=== PATIENT | male | born 1955 | race Caucasian/White ===

== ENCOUNTER 2023-11-06 16:22 | Inpatient (IN) | payer MEDICARE, OTHER, SELFPAY ==
[2023-11-06] VITALS (14 sets, daily range): BP systolic 105–177; BP diastolic 54–127; BMI 32.5
--- NOTE | 2023-11-06 11:27 | W.PN.CARDCBS ---
Today's Communication / Plan
-
LHC today, serial troponin to peak
Afib rate control, increase metoprolol 25 bid, resume Xarelto when able
HTN urgency, resume meds post cath, trend
Impression / Plan
-
This is a summary, please see scanned H&P
PCP: Fran Britton MD
Primary waterproofing mixer: Ty Obregon MD
68 yo WM h/o persistent Afib prior ablations x3 (2000 [facility], [address] Curtis), HTN, STALIN/CPAP, Hyperlipidemia who presented to on 11/05/23 with b/l shoulder pain and chest pain which started on Thursday afternoon which progressed
radiating to his jaw. On arrival to ER he was found to be in Afib with RVR and HTN urgency bp 200/140. His rates and BP were controlled with medication. His K+ was 2.9 and repleted, EKG showed mild ST changes and Troponin trended up 12-14-160. He is
being transferred today for [facility].
11/06/23 ECHO - LVEF 53%, no WMA, mild dil RA, mild-mod MR, mild AR
Impression:
Chest pain/NSTEMI
Hypertensive urgency
Persistent AFib with RVR on admission
Afib ablation 2000 at [facility], Dr. Rahman
07/16/10 and 03/16/[address] Curtis
Hypokalemia
HLD
STALIN/CPAP
Asthma
Diverticulosis
Plan:
Chest pain/NSTEMI - Admit IVU post cath, PCI RCA
serial troponin to peak
Brilinta switch to Plavix load in am
triples for 1 week - ASA, Plavix and Xarelto (dose lowered to 15mg while on Plavix), then stop Aspirin
Continue metoprolol, losartan
check CVE in am, stop simvastatin switch to atorvastatin 40mg
Cardiac rehab c/s
f/u Dr. Obregon 2-4 weeks
Afib with RVR - resume Xarelto post cath, continue diltiazem, increase metoprolol 25mg bid
trend electrolytes with hypokalemia, monitor on tele
c/s EP if necessary, last saw Dr. España in 2018
maintain CPAP, wt loss encouraged
HTN urgency - monitor trends post PCI, will increase metoprolol to 25mg bid
continue losartan, diltiazem
continue to monitor closely
Progress Note - Nursing Home Manager
Subjective
Date of Service: November 06, 2023
no cp, sob on arrival
Physical Exam
Physical Exam
NAD< AOX3
S1, S2, irreg irreg, no murmur
CTAB, non labored
SNTND bsx4
No LE edema
[2023-11-06] MEDS: NSS 308 ML IV (13:31)
--- NOTE | 2023-11-06 14:03 | PTCARENOTE ---
Pt C/O left side mix axillary pain. 1 spray of SL NTG given per Wendy PRICE CLERK
[2023-11-06 16:15] LABS: ACT-LR - POC 248 Seconds (116-155)
--- NOTE | 2023-11-06 16:43 | CM ---
spoke to pt in room, he is prev indep, lives with his and 2 granddaughter ( ) in a 2 story townhouse. he denies any dc planning needs or dme's. plan is for dc to home when medically stable.
--- NOTE | 2023-11-06 16:44 | CM ---
priced nati at [facility] [place], operated by [facility], his cost will be $ 425/3-months, he is agreeable to this cost.
--- NOTE | 2023-11-06 17:05 | ITS.CL.CATH ---
Capital Equipment Specialist - Catheterization
Cardiac Catheterization
Procedure Report:
LEFT HEART CATH AND CORONARY INTERVENTION
Date of Procedure: November 06, 2023
Referring: Dr. Ty Obregon
PROCEDURES:
1. Left heart catheterization with coronary and single-plane left ventriculography
2. Stenting of the distal right coronary artery to the proximal PDA with a 3.0 x 22 mm [place] stent. Plaque shift resulted in occlusion of a large posterolateral branch which underwent successful wiring, balloon and stenting at its ostium with
placement of a 3.0 x 8 mm David stent at the ostium of the PLB
INDICATION: This is a 68-year-old gentleman with a past medical history notable for permanent atrial fibrillation, hypertension, hyperlipidemia, and obesity. He was admitted to [facility] following the development of chest and bilateral
shoulder discomfort with radiation into the jaw. He became chest pain-free and is now referred to [facility] for coronary angiography. His troponin on arrival measured 0.2 ng/mL and he reported ongoing low-grade substernal chest tightness.
ACCESS: Right radial artery, 6 [place] sheath
HEMODYNAMICS (mmHg):
AO (s/d, m) : 174/108
LV (s/d) : 175/13
LVEDP : 23
CORONARY FINDINGS
Dominance: Right
LEFT MAIN: Short and unobstructed
LEFT ANTERIOR DESCENDING: The LAD is a small caliber vessel arising normally from the left main and running in the anterior interventricular groove. The LAD approaches but does not wraparound the apex.
CIRCUMFLEX: The circumflex is a medium caliber nondominant vessel. There are tandem 50% proximal stenosis. OM1 is small. The circumflex terminates in a moderate caliber OM 2. Minor irregularities are noted
RIGHT CORONARY: The right coronary artery is a large-caliber dominant vessel with a 50% stenosis in its midportion. Diffuse luminal irregularities are present throughout the right coronary artery. The crux of the right coronary artery has an 80%
stenosis with hazy subtotal occlusion/95% stenosis in the proximal PDA. The PDA is large and has a 40% mid stenosis and competitive flow is noted to the distal PDA from left to right collaterals. The posterolateral branch is large and I under
appreciated the angiographic severity of the stenosis at the origin of the PLB. The posterolateral branch is large and on review of the angiograms there is a 70-80% ostial stenosis. The PLB is a large caliber vessel with minor irregularities in
the mid to distal portion of the vessel.
VENTRICULOGRAPHY: Left ventriculography was performed in an STRAUSS projection. The digital single-plane left ventricular ejection fraction is estimated at 55-60% with inferoapical hypokinesis
ANGIOPLASTY PROCEDURE DETAIL: Upon review of the diagnostic catheterization films the decision was made to proceed with percutaneous revascularization of the culprit stenosis in the distal RCA extending to the origin of the PDA. The patient
received a 180 mg loading dose of ticagrelor at the beginning of the interventional procedure. Intravenous heparin was administered and the ACT was monitored during the procedure and maintained within therapeutic limits. The origin of the right
coronary artery was cannulated with a 6 [place] AL-1 guide catheter. A short BMW guidewire was advanced across the stenosis in the distal RCA and at the origin of the PDA and into the distal PDA. A Power Turn Flex guidewire was advanced to the
large posterolateral branch and into the distal vessel. Primary stenting was performed using a 3.0 x 22 mm David stent from the distal RCA to the proximal PDA the stent was implanted at nominal pressures with immediate plaque shift and occlusion of
the posterolateral branch. The patient experienced chest discomfort and ECG changes. A long BMW guidewire was then advanced across the stent and into the posterolateral branch where it was gently manipulated into the distal vessel. Antegrade flow
was reestablished in the posterolateral branch using a 2.25 mm Trek balloon. A 3.0 x 8 mm [place] stent was then advanced to the proximal posterolateral branch. The 3.0 x 8 mm [place] stent was deployed at the ostium of the posterolateral branch at 12
chela while a 3.0 x 12 mm noncompliant balloon was inflated to low pressure as the posterolateral stent was pulled to the ostium of the vessel. Final kissing balloon angioplasty was performed using a 3.0 x 8 mm noncompliant balloon at the origin of
the posterolateral branch and a 3.0 x 12 mm noncompliant balloon in the distal RCA to proximal PDA. Both balloons were inflated to 12 chela.
RADIATION SUMMARY: Fluoro Time (min): 16.5, Dose (mGy): 1849, DAP (Gy.cm2) : 103
CONCLUSIONS
1. Complex stenting of the distal RCA to the proximal PDA with a 3.0 x 22 mm [place] stent with subsequent plaque shift and loss of large posterolateral branch. The posterolateral branch was rescued with initial 2.25 mm balloon dilation and
subsequent stenting of the ostium of the posterolateral branch with a 3.0 x 8 mm [place] stent. Both stented segments were postdilated to high pressures with a final kissing balloon angioplasty.
2. Preserved left ventricular systolic function
RECOMMENDATIONS
1. Will change Xarelto to Eliquis
2. Triple therapy with Eliquis, clopidogrel, and aspirin for 1 week followed by Eliquis and clopidogrel
3. Aggressive risk modification with high intensity statin therapy. Continue medications for heart rate control given permanent atrial fibrillation
4. GI prophylaxis
Copy to: Dr. Ty Obregon, Dr. Fran Tate
[2023-11-06] MEDS: NSS 1000 IV (18:08)
[2023-11-06] MEDS: LIPITOR 40 MG PO (18:20)
[2023-11-06] MEDS: TOPROL XL 25 MG PO (20:43)
[2023-11-06] MEDS: CARDIZEM SR 120 MG PO (20:44)
[2023-11-06 20:45] LABS: Glucose - Point of Care 145 mg/dl (70-99)
[2023-11-06 21:01] LABS: Troponin I 0.645 ng/ml
[2023-11-06] MEDS: ELIQUIS 5 MG PO (22:16)
--- NOTE | 2023-11-07 00:54 | PTCARENOTE ---
Received patient at change of shift this PM. AAOx3. VSS. He is A-Fib on the monitor. HR in the 80s-110s. INT patent. Nitroglycerin turned off at approximately 1930, per order. BPs controlled at this time. Right radial band removed at approximately
2129. Education was provided to the patient not to use this wrist and/or apply pressure when changing positions. Dressing is clean, dry, and intact. No bleeding. No hematoma. Patient reported feeling a little 'woozy', but denies lightheadedness,
dizziness, and nausea. 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 Plan of care discussed. He is receptive to teaching
and motivated. We discussed his medications and this RN answered any and all questions regarding his Eliquis. He denies pain and appears comfortable in bed at this time. Will continue to monitor.
[2023-11-07 02:30] VITALS: BP 136/81
[2023-11-07 02:37] VITALS: BMI 32.1
[2023-11-07 04:37] LABS: Hematocrit 46.1 % (39.0-52.0); Hemoglobin 16.5 g/dL (13.0-18.0); Mean Corp Hgb Conc. 35.8 g/dL (33.0-37.0); Mean Corpuscular Hgb 28.8 pg (27.0-31.0); Mean Corpuscular Volume 80.6 fL (80.0-94.0); Mean Platelet Volume 11.5 fL (7.4-10.4); Platelet Count 199 10^3/uL (130-400); Red Blood Cell Count 5.72 10^6/uL (4.70-6.10); Red Cell Dist. Width 12.9 % (11.5-14.5); White Blood Cell Count 13.6 10^3/uL (4.8-10.8)
[2023-11-07 05:00] LABS: Blood Urea Nitrogen 10 mg/dl (9-20); Calcium 9.1 mg/dl (8.4-10.2); Carbon Dioxide 23 mmol/L (22-30); Chloride 103 mmol/L (98-107); Estimated Creatinine Clearance > 125 ml/min; Glucose 142 mg/dl (70-99); HDL Cholesterol 35 mg/dl; LDL Cholesterol, Calculated 72 mg/dl; Potassium 3.1 mmol/L (3.5-5.1); Sodium 137 mmol/L (135-145); Total Cholesterol 128 mg/dl (50-199); Triglyceride 106 mg/dl (10-149); Very Low Density Lipoprotein 21 mg/dl (0-30); eGFR > 60.00
[2023-11-07] MEDS: KCL 40 MEQ PO (05:55)
[2023-11-07 07:42] VITALS: BP 136/78
--- NOTE | 2023-11-07 07:56 | W.PN.CARDCBS ---
Addendum entered and electronically signed by Derrell Barajas, 11/07/23 14:01:
.
Troponin stable. Reviewed with interventional cardiology. Stable for d/c.
Addendum entered and electronically signed by Derrell Barajas, DO 11/07/23 09:56:
I saw and examined the patient.
The Deflash And Wash Operator's note was reviewed and I agree with the note.
Comment:
Plan:
Trend troponin until it peaks and then likely d/c
Reviewed cath with pt.
Xarelto was changed to Eliquis.
Cont Plavix
Remains in perm aFib cont rate control
Original Note:
Today's Communication / Plan
-
D/C to home pending next Troponin
Impression / Plan
-
PCP: Fran Britton MD
Primary tractor engine assembler: Ty Obregon MD
Impression:
Chest pain/NSTEMI
CAD s/p 3 mm Onxy MILADIS to distal RCA and 3.0 mm [place] MILADIS to ostium of the PLB 11/06/23
Hypertensive urgency
Persistent to permanent AFib with RVR on admission
Afib ablation 2000 at [facility], Dr. Rahman
s/p PVI 07/16/10 and [address]/16/[address] Curtis
Hypokalemia
HLD
STALIN/CPAP
Asthma
Diverticulosis
Echo 11/06/23: LVEF 53%, no WMA, mild dil RA, mild-mod MR, mild AR
Plan:
-Patient with distal RCA PCI 11/06/23 and then plaque shift resulted in occlusion of a large posterolateral branch which underwent successful wiring, balloon and stenting at its ostium with placement of a 3.0 x 8 mm David stent at the ostium of the
PLB.
-Troponin was 0.2 on transfer and has trended up to 1.72 on 11/07/23 AM. Check another Troponin 11/07/23 later morning and if trending down then he can be discharged to home
-Patient was started on Plavix and received a 600 mg loading dose on 11/07/23 AM. Patient should take Plavix 75 mg daily.
-Outpatient Xarelto was changed to Eliquis 5 mg BID (age 68, Cre 0.6, wt 101 kg). His co-pay for 3 months of Eliquis will be $425
-LDL 72 and outpatient dose of simvastatin was changed to atorvastatin
-Outpatient doses of losartan, Toprol XL and Cardizem CD have been continued.
-EF was stable at 53%
-He wants to do cardiac rehab at [facility]
-Afib is persistent to permanent at this point. He has had 3 PVIs in the past. HRs controlled with Cardizem CD and Toprol XL
-Patient reports a h/o hypokalemia prior to admission as well. He was given KCl 40 meq PO 11/07/23 AM. Check magnesium level. Will discharge to home on KCl 20 meq daily with a BMP in 1 week
-D/C to home 11/07/23 pending next Troponin
HPI: 68 yo WM h/o persistent Afib prior ablations x3 (2000 [facility], [address] Curtis), HTN, STALIN/CPAP, Hyperlipidemia who presented to on 11/05/23 with b/l shoulder pain and chest pain which started on Thursday afternoon which
progressed radiating to his jaw. On arrival to ER he was found to be in Afib with RVR and HTN urgency bp 200/140. His rates and BP were controlled with medication. His K+ was 2.9 and repleted, EKG showed mild ST changes and Troponin trended up
12-14-160. He is being transferred today for [facility].
Progress Note - Cargo Broker
Subjective
Date of Service: November 07, 2023
He says that he feels much better compared to admission
Objective
Labs:
11/07/23 04:19
11/07/23 04:19
Labs
Hgb 16.5 g/dL (13.0-18.0) 11/07/23 04:19
Hct 46.1 % (39.0-52.0) 11/07/23 04:19
Plt Count 199 10^3/uL (130-400) 11/07/23 04:19
Sodium 137 mmol/L (135-145) 11/07/23 04:19
Potassium 3.1 mmol/L (3.5-5.1) L 11/07/23 04:19
BUN 10 mg/dl (9-20) 11/07/23 04:19
Creatinine 0.6 mg/dL (0.7-1.3) L 11/07/23 04:19
Glucose 142 mg/dl (70-99) H 11/07/23 04:19
Troponins
11/06/23 11/06/23 11/07/23
13:56 20:20 04:19
Troponin I 0.200 H* 0.645 H* D 1.720 H* D
11/07/23
12:20
Troponin I Cancelled
Vital Signs and I&O:
Vital Signs
Temp Pulse Resp BP Pulse Ox
98.1 F 73 18 136/81 97
11/07/23 07:47 11/07/23 06:00 11/07/23 07:47 11/07/23 02:30 11/07/23 07:47
Vital Signs
Temp Pulse Resp BP Pulse Ox
98.1 F 73 18 136/81 97
11/07/23 07:47 11/07/23 06:00 11/07/23 07:47 11/07/23 02:30 11/07/23 07:47
Intake & Output
11/05/23 11/06/23 11/07/23 11/08/23
06:59 06:59 06:59 06:59
Intake Total 1318 / 1318
Output Total 600 / 600
Balance 718 / 718
Physical Exam
Physical Exam
GEN: NAD, AAOx3
HEENT: EOMI, MMM
LUNGS: CTA B/L
CV: Irreg irreg
ABD: soft, BS+
EXT: No edema
NEURO: Gross non-focal
SKIN: Right radial dressing removed and no hematoma, ecchymosis or tenderness. No rash
[2023-11-07] MEDS: PLAVIX 600 MG PO (08:21)
[2023-11-07] MEDS: TOPROL XL 25 MG PO (08:21)
[2023-11-07] MEDS: LOW STRENGTH ASPIRIN 81 MG PO (08:22)
[2023-11-07] MEDS: BUMEX 1 MG PO (08:22)
[2023-11-07] MEDS: PROTONIX 40 MG PO (08:22)
[2023-11-07] MEDS: ELIQUIS 5 MG PO (08:23)
[2023-11-07] MEDS: COZAAR 100 MG PO (08:23)
--- NOTE | 2023-11-07 09:40 | W.DS.TRANS ---
DC Summary - Sea Shell Gatherer
-
Discharge Instructions:
Discharge Diagnosis/Procedures Afib with RVR, NSTEMI, Angioplasty with stent to
RCA x2
Diet Low Cholesterol
Activity Other activity
Driving Restrictions No driving for 24 hours
Bathing Restrictions OK to Shower
Blood Work Non-fasting blood work in 1 week to check kidney
functions and electrolytes.
Other Services Cardiac Rehab
Stop these medications: Stop Simvastatin you will be on Atorvastatin.
Stop Xarelto you will be on Eliquis
Instructions:
Stand-Alone Forms: DC Instructions- Cath/EP Lab
Changes to Home Medications: Yes
Discharge Medications:
DC Medications w/original date entered in [employer]
apixaban 5 mg tablet (Eliquis) 5 mg PO BID #60 tabs 11/06/23
aspirin 81 mg chewable tablet (Children's Aspirin) 81 mg PO DAILY #1 tab 11/06/23
atorvastatin 40 mg tablet 40 mg PO QPM #90 tabs 11/06/23
bumetanide 1 mg tablet 1 mg PO DAILY 11/06/23
clopidogrel 75 mg tablet 75 mg PO DAILY #90 tabs 11/06/23
coenzyme Q10 100 mg capsule (CoQ-10) 200 mg PO DAILY 11/06/23
diltiazem HCl 120 mg capsule,extended release 12 hr 120 mg PO BID 11/06/23
losartan 100 mg tablet 100 mg PO DAILY 11/06/23
metoprolol succinate 25 mg tablet,extended release 24 hr 25 mg PO DAILY 11/06/23
potassium chloride 20 mEq tablet,extended release 20 meq PO DAILY Electrolyte Repletion #90 tabs 11/07/23
Home Medication Changes
New to KCl, Plavix, Eliquis, atorvastatin
Outpatient doses of simvastatin and Xarelto stopped
Pending Results: No
[2023-11-07 09:53] VITALS: BP 144/88
[2023-11-07] MEDS: CARDIZEM SR 120 MG PO (09:55)
[2023-11-07 10:05] LABS: Magnesium 2.2 mg/dl (1.6-2.3)
[2023-11-07 11:10] LABS: Glycohemoglobin (HgbA1c) 7.2 % (4.0-5.6)
[2023-11-07 12:02] VITALS: BP 129/95
[2023-11-09 07:55] LABS: ACT-LR - POC > 397 Seconds (116-155)
[2023-11-09 10:11] LABS: ACT-LR - POC 334 Seconds (116-155)
[2023-11-09 19:24] LABS: Hepatitis C Antibody Negative (Negative)
== END 2023-11-07 15:49 | disposition home or self-care (01) | DRG 322 ==
LOC: IVU 16:22
PROVIDERS: Nurse Practitioner Adult Health; Physician Assistant Medical; ADMITTING PHYSICIAN Internal Medicine Interventional Cardiology
PROC: B2111ZZ Fluoroscopy of Multiple Coronary Arteries using Low Osmolar Contrast (ICD-10-PCS; 2023-11-06)
PROC: 4A023N7 Measurement of Cardiac Sampling and Pressure, Left Heart, Percutaneous Approach (ICD-10-PCS; 2023-11-06)
PROC: 027135Z Dilation of Coronary Artery, Two Arteries with Two Drug-eluting Intraluminal Devices, Percutaneous Approach (ICD-10-PCS; 2023-11-06)
PROC: B2151ZZ Fluoroscopy of Left Heart using Low Osmolar Contrast (ICD-10-PCS; 2023-11-06)
DX: I21.4 Non-ST elevation (NSTEMI) myocardial infarction (principal); I48.21 Permanent atrial fibrillation; I16.0 Hypertensive urgency; I10 Essential (primary) hypertension; G47.33 Obstructive sleep apnea (adult) (pediatric); E87.6 Hypokalemia; E78.5 Hyperlipidemia, unspecified; J45.909 Unspecified asthma, uncomplicated; K57.90 Diverticulosis of intestine, part unspecified, without perforation or abscess without bleeding; I25.10 Atherosclerotic heart disease of native coronary artery without angina pectoris; Z79.01 Long term (current) use of anticoagulants
CPT/HCPCS: 80048; 80061; 82962; 83036; 83735; 84484; 85027; 85347; 86803; 87070; 93005; 93458; C1725; C1769; C1874; C1887; C1894; C9600; C9601; Q9967